=== PATIENT | female | born 1990 | race Caucasian/White ===

== ENCOUNTER 2017-02-01 09:55 | Emergency (ER) | payer BC ==
[2017-02-01 10:22] VITALS: BP 107/59
--- NOTE | 2017-02-01 11:25 | UC ---
Throat Pain/Nasal Navi HPI - HPI Summary HPI Summary: This is a 26 yo female with a h/o anxiety who presents with a 1d h/o ST, SHANKAR and fever. Temp was 100.1 this am. Symptoms started yesterday. Denies associated cough or congestion. She reports generalized aching. He son had a recent febrile illness. No n/v. Appetite ok. - History of Current Complaint Hx Last Menstrual Period: 01/08/17 <Jonnathan Dangelo - Last Filed: 02/01/17 11:20> <Maggie Yañez - Last Filed: 02/01/17 20:48> - History of Current Complaint Chief Complaint: UCGeneralIllness Stated Complaint: SORE THROAT - Allergies/Home Medications Allergies/Adverse Reactions: Allergies Allergy/AdvReac Type Severity Reaction Status Date / Time No Known Allergies Allergy Verified 02/01/17 10:17 Home Medications: Home Medications Citalopram TAB* [Celexa TAB*] 20 mg PO DAILY 02/01/17 [History Confirmed ] PMH/Surg Hx/FS Hx/Imm Hx Psychological History: Anxiety - Surgical History Surgical History: None - Family History Known Family History: Positive: None - Social History Alcohol Use: Occasionally Substance Use Type: None Smoking Status (MU): Never Smoked Tobacco Have You Smoked in the Last Year: No - Immunization History Most Recent Influenza Vaccination: 03/2016 Most Recent Tetanus Shot: 11/09/13 Most Recent Pneumonia Vaccination: no need <Jonnathan Dangelo - Last Filed: 02/01/17 11:20> Review of Systems Constitutional: Fever, Fatigue Skin: Negative Eyes: Negative ENT: Sore Throat Respiratory: Negative Cardiovascular: Negative Gastrointestinal: Negative Genitourinary: Negative Motor: Negative Neurovascular: Negative Musculoskeletal: Negative Neurological: Negative Psychological: Negative All Other Systems Reviewed And Are Negative: Yes <Jonnathan Dangelo - Last Filed: 02/01/17 11:20> Physical Exam Triage Information Reviewed: Yes Appearance: Ill-Appearing - mildly Vital Signs: Initial Vital Signs Temp 98.4 F 02/01/17 10:18 Pulse 80 02/01/17 10:18 Resp 16 02/01/17 10:18 BP 107/59 02/01/17 10:18 Pulse Ox 99 02/01/17 10:18 Vital Signs Reviewed: Yes ENT: Positive: Hearing grossly normal, Pharyngeal erythema, TMs normal, Tonsillar swelling, Tonsillar exudate. Negative: Nasal congestion Neck: Positive: Supple, Nontender, Enlarged Nodes @ - mild anterior cervical LAD Respiratory: Positive: Lungs clear, Normal breath sounds. Negative: Crackles, Rhonchi, Wheezing Cardiovascular: Positive: RRR, No Murmur Abdomen Description: Positive: Nontender, Soft Neurological: Positive: Alert Psychological: Positive: Normal Response To Family Skin Exam: Normal Skin: Negative: rashes <Jonnathan Dangelo - Last Filed: 02/01/17 11:20> Vital Signs: Initial Vital Signs Temp 98.4 F 02/01/17 10:18 Pulse 80 02/01/17 10:18 Resp 16 02/01/17 10:18 BP 107/59 02/01/17 10:18 Pulse Ox 99 02/01/17 10:18 <Maggie Yañez - Last Filed: 02/01/17 20:48> Diagnostics - Laboratory Diagnostic Studies Completed/Ordered: rapid strep - neg <Jonnathan Dangelo - Last Filed: 02/01/17 11:20> Throat Pain/Nasal Course/Dx - Course Course Of Treatment: This is an otherwise healthy 26 yo female with a 1d h/o ST , SHANKAR and fever. Exam showed pharyngeal erythema, tonsillar swelling and exudate. Rapid strep neg, but symptoms and exam are classic for strep so will empirically treat for strep pharyngitis with 10d of PCN. - Differential Dx/Diagnosis Differential Diagnosis/HQI/PQRI: Laryngitis, Pharyngitis, Sinusitis, Tonsillitis Provider Diagnoses: 1. Tonsillitis <Jonnathan Dangelo - Last Filed: 02/01/17 11:20> Discharge <Jonnathan Dangelo - Last Filed: 02/01/17 11:20> <Maggie Yañez - Last Filed: 02/01/17 20:48> - Discharge Plan Condition: Stable Disposition: HOME Prescriptions: Penicillin VK 500 MG TAB(NF) [Penicillin VK 500 mg Tab] 500 mg PO QID #30 tab Patient Education Materials: Strep Throat (ED) Referrals: No Primary Care Phys,NOPCP [Primary Care Provider] - Additional Instructions: Activity: As tolerated Instructions: 1. Please take antibiotics as directed 2. Follow up with your PCP if you do not feel better Attestation Statement User Type: Provider - I was available for consult. This patient was seen by the KELLIE. The patient was not presented to, seen by, or examined by me. -Shailesh <Maggie Yañez - Last Filed: 02/01/17 20:48>
--- NOTE | 2017-02-03 18:23 | UC ---
Progress - Progress Note Progress Note: Pt started on Pen VK QID for sore throat on 02/01/17, but culture negative. Please call pt to tell her she can stop the antibiotic. If she feels she responded quickly and positively to the antibiotic and wants to continue, I recommend she stop after 5-7 days, since there is not risk of rheumatic fever without Group A strep infection. <Mckenzie Bragg - Last Filed: 02/03/17 18:21> Attestation Statement User Type: Provider - I was available for consult. This patient was seen by the KELLIE. The patient was not presented to, seen by, or examined by me. -Shailesh <Maggie Yañez - Last Filed: 02/04/17 14:42>
== END 2017-02-01 11:26 | disposition home or self-care (01) ==
LOC: UCEAST 09:55
DX: J03.90 Acute tonsillitis, unspecified (principal)
CPT/HCPCS: 87070; 87077; 87651; 99212; G0463

== ENCOUNTER 2017-03-11 16:17 | Emergency (ER) | payer BC ==
[2017-03-11 16:35] VITALS: BP 99/61
--- NOTE | 2017-03-11 16:49 | UC ---
Lower Extremity/Ankle HPI - HPI Summary HPI Summary: Tried to remove an ingrown toe nail herself a few days ago now has continued pain swelling erythema and drainage from lateral side of great toe nail - History of Current Complaint Hx Obtained From: Patient Hx Last Menstrual Period: 03/05/17 ?: No Onset/Duration: Gradual Onset, Lasting Days, Still Present Severity Initially: Mild Severity Currently: Moderate Pain Intensity: 7 Pain Scale Used: 0-10 Numeric Aggravating Factor(s): Nothing Alleviating Factor(s): Nothing Able to Bear Weight: Yes <Lorraine Dobson - Last Filed: 03/11/17 16:50> <Maggie Yañez - Last Filed: 03/11/17 17:22> - History of Current Complaint Chief Complaint: UCLowerExtremity Stated Complaint: RIGHT TOE Time Seen by Provider: 03/11/17 16:45 - Allergies/Home Medications Allergies/Adverse Reactions: Allergies Allergy/AdvReac Type Severity Reaction Status Date / Time No Known Allergies Allergy Verified 02/01/17 10:17 PMH/Surg Hx/FS Hx/Imm Hx Previously Healthy: Yes - Surgical History Surgical History: None - Family History Known Family History: Positive: None - Social History Occupation: Employed Full-time Lives: With Family Alcohol Use: Occasionally Substance Use Type: None Smoking Status (MU): Never Smoked Tobacco Have You Smoked in the Last Year: No - Immunization History Most Recent Influenza Vaccination: 03/2016 Most Recent Tetanus Shot: 11/09/13 Most Recent Pneumonia Vaccination: no need <Lorraine Dobson - Last Filed: 03/11/17 16:50> Review of Systems Constitutional: Negative Skin: Other - pain, swelling. redness drainage lateral right side of toe nail Eyes: Negative ENT: Negative Respiratory: Negative Cardiovascular: Negative Gastrointestinal: Negative Genitourinary: Negative Motor: Negative Neurovascular: Negative Musculoskeletal: Negative Neurological: Negative Psychological: Negative Is Patient Immunocompromised?: No All Other Systems Reviewed And Are Negative: Yes <Lorraine Dobson - Last Filed: 03/11/17 16:50> Physical Exam Triage Information Reviewed: Yes Appearance: Well-Appearing, No Pain Distress, Well-Nourished Vital Signs: Initial Vital Signs Temp 98.1 F 03/11/17 16:30 Pulse 65 03/11/17 16:30 Resp 18 03/11/17 16:30 BP 99/61 03/11/17 16:30 Pulse Ox 100 03/11/17 16:30 Vital Signs Reviewed: Yes Eye Exam: Normal Eyes: Positive: Conjunctiva Clear ENT Exam: Normal ENT: Positive: Normal ENT inspection, Hearing grossly normal. Negative: Nasal congestion, Nasal drainage, Trismus, Muffled/hoarse voice Dental Exam: Normal Neck exam: Normal Neck: Positive: Supple, Nontender Respiratory Exam: Normal Respiratory: Positive: No respiratory distress, No accessory muscle use Cardiovascular Exam: Normal Cardiovascular: Positive: RRR, Pulses Normal, Brisk Capillary Refill Musculoskeletal Exam: Normal Musculoskeletal: Positive: Strength Intact, ROM Intact, Edema @ - lateral side of right great toe Neurological Exam: Normal Neurological: Positive: Alert, Muscle Tone Normal Psychological Exam: Normal Skin Exam: Other Skin: Positive: Other - pain red swelling drainage lateral side right toe nail <Lorraine Dobson - Last Filed: 03/11/17 16:50> Vital Signs: Initial Vital Signs Temp 98.1 F 03/11/17 16:30 Pulse 65 03/11/17 16:30 Resp 18 03/11/17 16:30 BP 99/61 03/11/17 16:30 Pulse Ox 100 03/11/17 16:30 <Maggie Yañez - Last Filed: 03/11/17 17:22> Lower Extremity Course/Dx - Course Course Of Treatment: warm soaks with mild soap 4-5 times aday, keflex, ibuprofen , follow with pcp prn - Differential Dx/Diagnosis Differential Diagnosis/HQI/PQRI: Fracture (Closed), Fracture (Open), Osteomyelitis, Subungual Hematoma, Sprain, Strain, Other - paronychia Provider Diagnoses: Paronychia right great toe nail <Lorraine Dobson - Last Filed: 03/11/17 16:50> Discharge <Lorraine Dobson - Last Filed: 03/11/17 16:50> <Maggie Yañez - Last Filed: 03/11/17 17:22> - Discharge Plan Condition: Stable Disposition: HOME Prescriptions: Cephalexin CAP* [Keflex CAP*] 500 mg PO QID #28 cap Patient Education Materials: Paronychia (ED), Warm Compress or Soak (ED), Cephalexin (By mouth) Referrals: [facility]ERR[facility] [Outside] - If Needed Attestation Statement User Type: Provider - I was available for consult. This patient was seen by the KELLIE. The patient was not presented to, seen by, or examined by me. -Shailesh <Maggie Yañez - Last Filed: 03/11/17 17:22>
== END 2017-03-11 16:50 | disposition home or self-care (01) ==
LOC: UCEAST 16:17
DX: L03.031 Cellulitis of right toe (principal)
CPT/HCPCS: 99212; G0463

== ENCOUNTER 2017-07-10 18:18 | Emergency (ER) | payer BC ==
--- NOTE | 2017-07-10 20:44 | UC ---
FLU HPI - HPI Summary HPI Summary: Patient presents with complaints of generalized fatigue, malaise, fever, cough and chest congestion. Her children has the flu and she works at the [facility] ,and they wont let her come back unless she is screened for the flu. She denies any chest, abdominal pain, nausea, vomiting, or diarrhea. - History of Current Complaint Hx Obtained From: Patient Hx Last Menstrual Period: 07/01/17 Onset/Duration: Sudden Onset Severity Currently: Moderate Severity Initially: Moderate Pain Intensity: 4 Associated Signs & Symptoms: Positive: Fever, Cough, Nasal Congestion <Alondra Elizalde - Last Filed: 07/10/17 20:39> <Saul Henderson - Last Filed: 07/15/17 07:36> - History of Current Complaint Chief Complaint: UCGeneralIllness Stated Complaint: RESP COMPLAINT Time Seen by Provider: 07/10/17 20:08 - Allergy/Home Medications Allergies/Adverse Reactions: Allergies Allergy/AdvReac Type Severity Reaction Status Date / Time No Known Allergies Allergy Verified 07/10/17 18:37 PMH/Surg Hx/FS Hx/Imm Hx Previously Healthy: Yes - Surgical History Surgical History: None - Family History Known Family History: Positive: None - Social History Occupation: Employed Full-time Lives: With Family Alcohol Use: Occasionally Substance Use Type: None Smoking Status (MU): Never Smoked Tobacco Have You Smoked in the Last Year: No - Immunization History Most Recent Influenza Vaccination: 03/2016 Most Recent Tetanus Shot: 11/09/13 Most Recent Pneumonia Vaccination: no need <Alondra Elizalde - Last Filed: 07/10/17 20:39> Review of Systems Constitutional: Fever, Chills, Fatigue Skin: Negative Eyes: Negative ENT: Sore Throat, Nasal Discharge Respiratory: Cough Cardiovascular: Negative Gastrointestinal: Negative Genitourinary: Negative Motor: Negative Neurovascular: Negative Musculoskeletal: Negative Neurological: Negative Psychological: Negative Is Patient Immunocompromised?: No All Other Systems Reviewed And Are Negative: Yes <Alondra Elizalde - Last Filed: 07/10/17 20:39> Physical Exam Triage Information Reviewed: Yes Appearance: Well-Appearing Vital Signs: Initial Vital Signs Temp 97.9 F 07/10/17 18:33 Pulse 96 07/10/17 18:33 Resp 20 07/10/17 18:33 BP 110/73 07/10/17 18:33 Pulse Ox 98 07/10/17 18:33 Vital Signs Reviewed: Yes Eye Exam: Normal ENT: Positive: Pharyngeal erythema Neck exam: Normal Neck: Positive: 1 Respiratory Exam: Normal Respiratory: Positive: Lungs clear, Normal breath sounds, No respiratory distress, No accessory muscle use Cardiovascular Exam: Normal Abdominal Exam: Normal Musculoskeletal Exam: Normal Neurological Exam: Normal Psychological Exam: Normal Skin Exam: Normal <Alondra Elizalde - Last Filed: 07/10/17 20:39> Triage Information Reviewed: Yes Vital Signs: Initial Vital Signs Temp 97.9 F 07/10/17 18:33 Pulse 96 07/10/17 18:33 Resp 20 07/10/17 18:33 BP 110/73 07/10/17 18:33 Pulse Ox 98 07/10/17 18:33 <Saul Henderson - Last Filed: 07/15/17 07:36> Flu Course/Dx - Course Course Of Treatment: Patient tested positive for influenza A, she was treated with tamiflu and 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 <Alondra Elizalde - Last Filed: 07/10/17 20:39> - Differential Dx/Diagnosis Provider Diagnoses: influenza <Saul Henderson - Last Filed: 07/15/17 07:36> Discharge <Alondra Elizalde - Last Filed: 07/10/17 20:39> <Saul Henderson - Last Filed: 07/15/17 07:36> - Discharge Plan Condition: Stable Disposition: HOME Prescriptions: Oseltamivir CAP* [Tamiflu CAP*] 75 mg PO BID #10 cap Patient Education Materials: Influenza (DC) Forms: *Work Release Referrals: No Primary Care Phys,NOPCP [Primary Care Provider] -
[2017-07-10 21:18] VITALS: BP 112/72
== END 2017-07-10 20:40 | disposition home or self-care (01) ==
LOC: UCEAST 18:18
DX: J11.1 Influenza due to unidentified influenza virus with other respiratory manifestations (principal)
CPT/HCPCS: 87502; 99212; G0463

== ENCOUNTER 2017-09-13 20:08 | Emergency (ER) | payer BC ==
[2017-09-13 21:09] LABS: ABS Basophils 0 10^3/ul (0-0.2); ABS Eosinophils 0.1 10^3/ul (0-0.6); ABS Lymphocytes 1.6 10^3/ul (1.0-4.8); ABS Monocytes 0.6 10^3/ul (0-0.8); ABS Neutrophils 5.6 10^3/ul (1.5-7.7); ABS Nucleated RBC 0 10^3/ul; Hematocrit 41 % (35-47); Hemoglobin 13.8 g/dl (12.0-16.0); Lymphocyte % 20.5 % (25-47); Mean Corpuscular HGB Conc 34 g/dl (31-36); Mean Corpuscular Hemoglobin 29 pg (27-31); Mean Corpuscular Volume 86 fL (80-97); Mean Platelet Volume 8.9 um3 (7.4-10.4); Nucleated Red Blood Cells % 0; Platelet Count 211 10^3/ul (150-450); Red Blood Count 4.77 10^6/ul (4.0-5.4); Red Cell Distribution Width 14 % (10.5-15); White Blood Count 7.9 10^3/ul (3.5-10.8)
[2017-09-13 21:21] LABS: INR 1.02 (0.77-1.02)
[2017-09-13 21:32] LABS: EGFR Non-African American 129.2 (>60)
[2017-09-13 21:59] LABS: Urine Appearance Clear; Urine Blood Negative (Negative); Urine Color Straw; Urine Ketones Trace (Negative); Urine Protein Negative (Negative); Urine Specific Gravity 1.003 (1.010-1.030); Urine Urobilinogen Negative (Negative)
--- NOTE | 2017-09-13 23:18 | ED ---
- HPI Summary HPI Summary: 27F LMP Jul 31 presents with cramping and vaginal bleeding for the past couple days. She states the pain is suprapubic and comes in waves. She states it is only blood when she wipes. she denies any dysuria. She denies any vomiting but admits to nausea. She denies any diarrhea constipation. States she has never had this with her previous . She denies any flank pain. She denies any fever. She denies any chest pain or SOB. - History of Current Complaint Chief Complaint: EDVaginalBleeding Stated Complaint: 7WKS PREG CRAMPING BLEEDING Time Seen by Provider: 09/13/17 20:47 Pain Intensity: 6 - Assessment Hx Now: No SAB: 0 IEA: 0 Hx Hysterectomy: No - Additional Pertinent History Maternal Blood Type and Rh: O Positive - Allergies/Home Medications Allergies/Adverse Reactions: Allergies Allergy/AdvReac Type Severity Reaction Status Date / Time No Known Allergies Allergy Verified 09/13/17 20:26 PMH/Surg Hx/FS Hx/Imm Hx Endocrine/Hematology History: Denies: Hx Diabetes, Hx Thyroid Disease Cardiovascular History: Denies: Hx Hypertension Respiratory History: Denies: Hx Asthma, Hx Chronic Obstructive Pulmonary Disease (COPD) GI History: Denies: Hx Ulcer Sensory History: Denies: Hx Contacts or Glasses Opthamlomology History: Denies: Hx Contacts or Glasses Psychiatric History: Reports: Hx Anxiety, Hx Depression Infectious Disease History: No Infectious Disease History: Denies: Hx Clostridium Difficile, Hx Hepatitis, Hx Human Immunodeficiency Virus (HIV), Hx of Known/Suspected MRSA, Hx Shingles, Hx Tuberculosis, Hx Known/ Suspected VRE, Hx Known/Suspected VRSA, History Other Infectious Disease, Traveled Outside the in Last 30 Days - Family History Known Family History: Positive: None - Social History Alcohol Use: Occasionally Substance Use Type: Reports: None Smoking Status (MU): Never Smoked Tobacco Have You Smoked in the Last Year: No Review of Systems Negative: Fever Negative: Chest Pain Negative: Shortness Of Breath Positive: Abdominal Pain, Other - vaginal bleeding All Other Systems Reviewed And Are Negative: Yes Physical Exam - Physical Exam Triage Information Reviewed: Yes Vital Signs Reviewed: Yes Appearance: Positive: Well-Appearing Skin: Positive: Warm, Dry Head/Face: Positive: Normal Head/Face Inspection Eyes: Positive: Normal, Conjunctiva Clear Respiratory/Lung Sounds: Positive: Clear to Auscultation, Breath Sounds Present Cardiovascular: Positive: Normal, RRR Abdomen Description: Positive: Nontender, Soft, Other: - OS closed Bowel Sounds: Positive: Present Musculoskeletal: Positive: Normal Neurological: Positive: Normal Psychiatric: Positive: Normal Diagnostics - Vital Signs Vital Signs Temp Pulse Resp BP Pulse Ox 09/13/17 20:22 98.4 F 84 16 116/76 98 - Laboratory Lab Results: Lab Results 09/13/17 09/13/17 09/13/17 Range/Units 20:57 20:57 20:57 WBC 7.9 (3.5-10.8) 10^3/ul RBC 4.77 (4.0-5.4) 10^6/ul Hgb 13.8 (12.0-16.0) g/dl Hct 41 (35-47) % MCV 86 (80-97) fL MCH 29 (27-31) pg MCHC 34 (31-36) g/dl RDW 14 (10.5-15) % Plt Count 211 (150-450) 10^3/ul MPV 8.9 (7.4-10.4) um3 Neut % (Auto) 70.6 (38-83) % Lymph % (Auto) 20.5 L (25-47) % [place] % (Auto) 7.6 H (0-7) % Eos % (Auto) 1.0 (0-6) % Baso % (Auto) 0.3 (0-2) % Absolute Neuts (auto) 5.6 (1.5-7.7) 10^3/ul Absolute Lymphs (auto) 1.6 (1.0-4.8) 10^3/ul Absolute Monos (auto) 0.6 (0-0.8) 10^3/ul Absolute Eos (auto) 0.1 (0-0.6) 10^3/ul Absolute Basos (auto) 0 (0-0.2) 10^3/ul Absolute Nucleated RBC 0 10^3/ul Nucleated RBC % 0 INR (Anticoag Therapy) 1.02 (0.77-1.02) APTT 34.7 (26.0-36.3) seconds Sodium 136 L (139-145) mmol/L Potassium 3.6 (3.5-5.0) mmol/L Chloride 104 (101-111) mmol/L Carbon Dioxide 25 (22-32) mmol/L Anion Gap 7 (2-11) mmol/L BUN 6 (6-24) mg/dL Creatinine 0.57 (0.51-0.95) mg/dL Est GFR ( Amer) 166.2 (>60) Est GFR (Non-Af Amer) 129.2 (>60) BUN/Creatinine Ratio 10.5 (8-20) Glucose 89 (70-100) mg/dL Calcium 9.1 (8.6-10.3) mg/dL Total Bilirubin 0.60 (0.2-1.0) mg/dL AST 46 H (13-39) U/L ALT 37 (7-52) U/L Alkaline Phosphatase 115 H (34-104) U/L Total Protein 7.3 (6.4-8.9) g/dL Albumin 4.6 (3.2-5.2) g/dL Globulin 2.7 (2-4) g/dL Albumin/Globulin Ratio 1.7 (1-3) Beta HCG, Quant 58295.00 mIU/mL Urine Color Urine Appearance Urine pH (5-9) Ur Specific [place] (1.010-1.030) Urine Protein (Negative) Urine Ketones (Negative) Urine Blood (Negative) Urine Nitrate (Negative) Urine Bilirubin (Negative) Urine Urobilinogen (Negative) Ur Leukocyte Esterase (Negative) Urine Glucose (Negative) 09/13/17 Range/Units 21:32 WBC (3.5-10.8) 10^3/ul RBC (4.0-5.4) 10^6/ul Hgb (12.0-16.0) g/dl Hct (35-47) % MCV (80-97) fL MCH (27-31) pg MCHC (31-36) g/dl RDW (10.5-15) % Plt Count (150-450) 10^3/ul MPV (7.4-10.4) um3 Neut % (Auto) (38-83) % Lymph % (Auto) (25-47) % [place] % (Auto) (0-7) % Eos % (Auto) (0-6) % Baso % (Auto) (0-2) % Absolute Neuts (auto) (1.5-7.7) 10^3/ul Absolute Lymphs (auto) (1.0-4.8) 10^3/ul Absolute Monos (auto) (0-0.8) 10^3/ul Absolute Eos (auto) (0-0.6) 10^3/ul Absolute Basos (auto) (0-0.2) 10^3/ul Absolute Nucleated RBC 10^3/ul Nucleated RBC % INR (Anticoag Therapy) (0.77-1.02) APTT (26.0-36.3) seconds Sodium (139-145) mmol/L Potassium (3.5-5.0) mmol/L Chloride (101-111) mmol/L Carbon Dioxide (22-32) mmol/L Anion Gap (2-11) mmol/L BUN (6-24) mg/dL Creatinine (0.51-0.95) mg/dL Est GFR ( Amer) (>60) Est GFR (Non-Af Amer) (>60) BUN/Creatinine Ratio (8-20) Glucose (70-100) mg/dL Calcium (8.6-10.3) mg/dL Total Bilirubin (0.2-1.0) mg/dL AST (13-39) U/L ALT (7-52) U/L Alkaline Phosphatase (34-104) U/L Total Protein (6.4-8.9) g/dL Albumin (3.2-5.2) g/dL Globulin (2-4) g/dL Albumin/Globulin Ratio (1-3) Beta HCG, Quant mIU/mL Urine Color Straw Urine Appearance Clear Urine pH 6.0 (5-9) Ur Specific [place] 1.003 L (1.010-1.030) Urine Protein Negative (Negative) Urine Ketones Trace A (Negative) Urine Blood Negative (Negative) Urine Nitrate Negative (Negative) Urine Bilirubin Negative (Negative) Urine Urobilinogen Negative (Negative) Ur Leukocyte Esterase Negative (Negative) Urine Glucose Negative (Negative) Result Diagrams: 09/13/17 20:57 09/13/17 20:57 Lab Statement: Any lab studies that have been ordered have been reviewed, and results considered in the medical decision making process. - Ultrasound No standard instances Ultrasound Interpretation: Positive (See Comments) - Single live intrauterine intrauterine gestation corresponding to 6 weeks 4 days. heart rate is with no heart motion. Small subchorionic bleed. Left ovarian cyst. Ultrasound Interpretation Completed By: Radiologist Course/Dx - Course Course Of Treatment: 27F LMP Jul 31 presents with cramping and vaginal bleeding for the past couple days. She states the pain is suprapubic and comes in waves. She states it is only blood when she wipes. she denies any dysuria. She denies any vomiting but admits to nausea. She denies any diarrhea constipation. States she has never had this with her previous . She denies any flank pain. She denies any fever. She denies any chest pain or SOB. On exam underdetermined. Os is closed. No vaginal discharge or bleeding. Ultrasound shows intrauterine gestation with low heart rate and no motion. We'll have follow-up with ob to trend and possible repeat ultrasound. Explained could miscarry as heart rate is low. Patient understands agrees with plan. - Differential Diagnosis/HQI/PQRI: Incomplete , Spontaneous , Threatened , Intrauterine - Diagnoses Provider Diagnoses: Vaginal bleeding during Discharge - Sign-Out/Discharge Documenting (check all that apply): Discharge - Discharge Plan Condition: Good Disposition: HOME Patient Education Materials: Threatened Miscarriage (ED) Referrals: Cielo Turner [Primary Care Provider] - Additional Instructions: The education provided is for your information. You may or may not have a miscarriage at this point. Follow up with OBGYN as will need repeat HCG level drawn to trend Return to ED if develop severe abdominal pain, fever, severe bleeding with symptoms such as lightheadedness or any new or worsening symptoms - Billing Disposition and Condition Condition: GOOD Disposition: HOME
[2017-09-14 00:03] VITALS: BP 105/56
--- NOTE | 2017-09-14 07:01 | RAD ---
INDICATION: Threatened miscarriage. COMPARISON: There are no prior studies available for comparison. TECHNIQUE: Multiple real-time transvaginal images of the pelvis were obtained. FINDINGS: This exam demonstrates an early intrauterine . A pole and yolk sac are visualized. The heart rate appears slightly slow at 94 bpm. No movement was noted. The crown-rump length measured 0.62 cm corresponding to an estimated gestational age of 6 weeks 4 days. The mean sac diameter measured 1.44 cm corresponding to an estimate gestational age of 6 weeks 2 days. The right ovary measured 2.5 x 1.5 x 3.0 cm. The left ovary measured 4.3 x 3.3 x 5.3 cm. There is a 3.1 x 2.8 cm left ovarian cyst most consistent with a corpus luteum cyst. There is a trace amount of free intraperitoneal fluid in the cul-de-sac. IMPRESSION: EARLY INTRAUTERINE WITH AN ESTIMATED GESTATIONAL AGE OF 6 WEEKS 4 DAYS BY CROWN-RUMP LENGTH. THE HEART RATE IS SLIGHTLY SLOW AND NO MOVEMENT WAS NOTED. RECOMMEND A FOLLOW-UP TRANSVAGINAL ULTRASOUND FOR FURTHER EVALUATION.
--- NOTE | 2017-09-15 10:01 | UC ---
- Progress Note Progress Note: Patient found to be positive for Gardnerella. Spoke with patient on the phone who reports some continued cramping but no bleeding. She will be calling Saturday September 16, 2017 for a follow up appointment with OB MD. Will call Flagyl 500mg po bid for 7 days in to [facility] pharmacy for patient. Reviewed instructions and alcohol precautions with patient-patient verbalizes understanding Course/Dx - Diagnoses Provider Diagnoses: Vaginal bleeding during Discharge - Sign-Out/Discharge Documenting (check all that apply): Post-Discharge Follow Up - Discharge Plan Condition: Good Disposition: HOME Prescriptions: metroNIDAZOLE [Flagyl 500 MG TAB] 500 mg PO BID 7 Days #14 tab Patient Education Materials: Threatened Miscarriage (ED) Referrals: Cielo Turner [Primary Care Provider] - Additional Instructions: The education provided is for your information. You may or may not have a miscarriage at this point. Follow up with OBGYN as will need repeat HCG level drawn to trend Return to ED if develop severe abdominal pain, fever, severe bleeding with symptoms such as lightheadedness or any new or worsening symptoms - Billing Disposition and Condition Condition: GOOD Disposition: HOME
== END 2017-09-14 00:03 | disposition home or self-care (01) ==
LOC: ED 20:08
DX: O46.91 Antepartum hemorrhage, unspecified, first trimester (principal); R10.9 Unspecified abdominal pain; Z3A.01 Less than 8 weeks gestation of pregnancy
CPT/HCPCS: 36415; 76817; 80053; 81003; 84702; 85025; 85610; 85730; 86900; 86901; 87480; 87491; 87510; 87591; 87661; 99283

== ENCOUNTER 2018-05-09 04:05 | Inpatient (IN) | payer BC ==
[2018-05-09] MEDS ORDERED: Ibuprofen TAB* 600 MG ONE (04:31)
[2018-05-09] MEDS ORDERED: OXYTOCIN* 10 UNITS/ML 1 ML VIAL IM ONE (04:51)
[2018-05-09] MEDS ORDERED: Dibucaine 1% 28.35 GM TUBE PR PRN (04:51)
[2018-05-09] MEDS ORDERED: Methylergonovine INJ* 0.2 MG/ML 1ML AMP IM ONE (04:51)
[2018-05-09] MEDS ORDERED: Witch Hazel PAD* JAR TOPICAL PRN (04:51)
[2018-05-09] MEDS ORDERED: Glycerin ADULT SUPP PR PRN (04:51)
--- NOTE | 2018-05-09 05:13 | PROCNOTE ---
[facility] OB: Delivery Note - Delivery A Date of : 05/09/18 Time of : 04:10 Sex: Female Weight at : 7 lb 15 oz Score 1 Minute: 9 Score 5 Minutes: 9 Gestational Age in Weeks and Days at Delivery: 39 Weeks and 6 Days Delivery Method: Spontaneous Vaginal Labor: Spontaneous Did Patient attempt ?: N/A, No Previous Amniotic Fluid: Clear Estimated Blood Loss: 400 Anesthesia/Analgesia: None - Nursery Level of Nursery: Regular/Bedside - Perineum Perineal Injury Comment: abrasion--1 stitch repair with 4-0 ccg under 1% lidocaine local Perineal Repair: By Delivering Practioner - Events Delivery Events of Note: Precipitous Delivery - Additional Delivery Notes Additional Delivery Notes: Pt arrived 0408 fully dilated, -1 station, intact membranes, vtx. Encouraged to push, SROM at 0409, SVB LFC, OA, at 0410. pink with stimulation, facial brusing. Placenta shukla manuever. FF with massage, pitocin 10 u IM at 0415. Continued to have mod flow, methergine 0.2 mg given at 0425. EBL 400cc. Total LOL 1'14"
--- NOTE | 2018-05-09 05:18 | HP ---
General Information - Reason for Visit precipitous labor - General Information Maternal Age: 28 Grav: 3 Para: 2 SAB: 0 IEA: 0 Estimated Due Date: 05/10/18 Determined By: Early Ultrasound Gestational Age in Weeks/Days: 39 w 6 d Maternal Blood Type and Rh: O Positive - Results this Serology/RPR Result: Non-Reactive Rubella Result: Immune HBsAg Result: Negative HIV Result: Negative GBS Culture Result: Negative Past Medical History Delivery History: Hx Uncomplicated Vaginal Delivery Past Medical History Comment: Anxiety, no meds at present Review of Systems Constitutional: Uncomfortable CV Complaint: No Respiratory: Shortness of Breath: No Gastrointestinal: Soft Stool Genitourinary: Bleeding Neurological: Headache - Comments Uterine cramping Exam Allergies/Adverse Reactions: Allergies No Known Allergies Allergy (Verified 09/13/17 20:26) - Measurements Height: 5 ft 5 in Pre- Weight: 128 lb - Exam Breast: - - soft, no masses Extremities: No Edema Heart: Normal Rhythm/Heart Sounds HEENT: No Significant Findings Lungs: Clear Bilaterally Thyroid: No Thyromegaly - Abdominal Exam Abdomen Exam Comment: Fundus firm, 2bU Targeted Exam Findings See L&D Outpatient Visit Provider Note for Findings: N/A - exam completed after delivery, see delivery note EFM Findings - External Monitor Findings External Monitor Findings Comment: No monitoring done Assessment/Plan - Assessment Multigravida, at 39w 6d, delivered. Precipitous labor and delivery - Plan Plan Comment: Routine care - Date/Time of Admission Date of Admission: 05/09/18 Time of Admission: 04:05
[2018-05-09] MEDS ORDERED: Acetaminophen TAB* 325 MG ONE (05:44)
[2018-05-09] MEDS: Acetaminophen TAB* 325 MG PO PRN ×3 (05:47→13:30)
[2018-05-09] MEDS ORDERED: OXYTOCIN* 10 UNITS/ML 1 ML VIAL ONE (06:11)
[2018-05-09] MEDS ORDERED: Methylergonovine INJ* 0.2 MG/ML 1ML AMP ONE (06:12)
[2018-05-09] MEDS: Docusate CAP* 100 MG PO SCH ×3 (09:36→21:27)
[2018-05-09] MEDS: Ibuprofen TAB* 600 MG PO PRN ×3 (10:59→21:27)
[2018-05-10] MEDS: Acetaminophen TAB* 325 MG PO PRN (00:59)
[2018-05-10 06:50] LABS: ABS Basophils 0 10^3/ul (0-0.2); ABS Eosinophils 0.1 10^3/ul (0-0.6); ABS Lymphocytes 2.3 10^3/ul (1.0-4.8); ABS Monocytes 0.6 10^3/ul (0-0.8); ABS Neutrophils 7.3 10^3/ul (1.5-7.7); ABS Nucleated RBC 0 10^3/ul; Eosinophil % 1.1 %; Hematocrit 31 % (35-47); Hemoglobin 10.1 g/dl (12.0-16.0); Lymphocyte % 22.5 %; Mean Corpuscular HGB Conc 32 g/dl (31-36); Mean Corpuscular Hemoglobin 25 pg (27-31); Mean Corpuscular Volume 76 fL (80-97); Mean Platelet Volume 9.4 fL (7.4-10.4); Nucleated Red Blood Cells % 0.1; Platelet Count 163 10^3/ul (150-450); Red Blood Count 4.07 10^6/ul (4.00-5.40); Red Cell Distribution Width 16 % (10.5-15); White Blood Count 10.4 10^3/ul (3.5-10.8)
[2018-05-10] MEDS: Ibuprofen TAB* 600 MG PO PRN (07:53)
[2018-05-10 08:10] VITALS: BP 116/81
[2018-05-10] MEDS ORDERED: Ferrous Gluconate TAB* 324 MG TAB PO SCH (09:00)
[2018-05-10] MEDS: Docusate CAP* 100 MG PO SCH (09:11)
== END 2018-05-10 13:55 | disposition home or self-care (01) | DRG 560 ==
LOC: MCHOBOUT 04:05 → MCHOB 04:08
PROVIDERS: ADMIT Midwife; ATTEND Midwife
PROC: 10E0XZZ Delivery of Products of Conception, External Approach (ICD-10-PCS; principal; 2018-05-09)
PROC: 4A1HXCZ Monitoring of Products of Conception, Cardiac Rate, External Approach (ICD-10-PCS; 2018-05-09)
PROC: 0HQ9XZZ Repair Perineum Skin, External Approach (ICD-10-PCS; 2018-05-09)
DX: O62.3 Precipitate labor (principal); Z37.0 Single live birth; O32.6XX0 Maternal care for compound presentation, not applicable or unspecified; Z3A.39 39 weeks gestation of pregnancy; O71.89 Other specified obstetric trauma
CPT/HCPCS: 36415; 85025; A9270-GY; J2210; J2590